=== PATIENT | female | born 1995 | race African-American/Black ===

== ENCOUNTER 2017-12-23 15:55 | Emergency (ER) | payer OTHER ==
[~2017-12-23] VITALS: Ht 165.1 cm; Wt 55.0 kg
[2017-12-23] MEDS ORDERED: FENTANYL CITRATE/PF 50MCG/ML 2ML VIAL IV ONE (16:15)
[2017-12-23] MEDS ORDERED: ETOMIDATE 2MG/ML 10ML VIAL IV ONE (16:15)
[2017-12-23] MEDS ORDERED: ONDANSETRON HCL 4MG/2ML VIAL IV PRN (16:15)
[2017-12-23] MEDS ORDERED: BACITRACIN ZINC 15GM TUBE TOP ONE (18:00)
[2017-12-23] MEDS ORDERED: HYDROCODONE/ACETAMINOPHEN 5/325MG TABLET PO ONE (18:00)
[2017-12-23] MEDS ORDERED: NAPROXEN 375MG TABLET PO ONE (18:00)
[2017-12-23 20:50] VITALS: BP 123/73
== END 2017-12-23 21:32 | disposition home or self-care (01) ==
LOC: ER 16:08
DX: S52.512A Displaced fracture of left radial styloid process, initial encounter for closed fracture (principal); S52.615A Nondisplaced fracture of left ulna styloid process, initial encounter for closed fracture; V43.52XA Car driver injured in collision with other type car in traffic accident, initial encounter; Y93.89 Activity, other specified; Y92.89 Other specified places as the place of occurrence of the external cause; Y99.8 Other external cause status
CPT/HCPCS: 29125; 70450; 73110; 96374; 96375; 99284; J2405; J3010; J3490